=== PATIENT | male | born 1980 | race Caucasian/White ===

== ENCOUNTER → 2016-08-23 | Outpatient (REF) | payer OTHER ==
[2016-08-23 13:36] LABS: VITAMIN B12 LEVEL 491 PG/ML (247-911)
[2016-08-23 13:37] LABS: FOLATE 20.7 NG/ML (>5.4)
[2016-08-23 13:41] LABS: BLOOD UREA NITROGEN 13 MG/DL (7-18); CREATININE FOR GFR 1.18 MG/DL (0.70-1.30); GLOMERULAR FILTRATION RATE > 60.0 (>60)
== END ==
LOC: M LABNEURO 09:41
PROVIDERS: ATTEND Psychiatry & Neurology Neurology
DX: I10 Essential (primary) hypertension (principal); R51 Headache

== ENCOUNTER → 2016-11-17 | Outpatient (CLI) | payer OTHER ==
--- NOTE | 2016-11-17 21:32 | ECHO ---
DATE OF PROCEDURE: 11/17/2016 REFERRING PHYSICIAN: Harry Freeman MD PATIENT LOCATION: Outpatient INDICATION: Palpitations. HEIGHT: 178 cm WEIGHT: 107 kg DIMENSIONS: IVS: 1.2 LV: 4.5 LVPW: 1.2 LA: 4.5 Aorta: 3.1 FINDINGS: The study is of difficult technical quality. Left ventricle is of normal size and overall likely normal LV systolic function even though visualization was limited. Mild left ventricular hypertrophy is noted. Right ventricle appears normal. Left atrium appears moderately enlarged. Right atrium appears normal. No pericardial effusion is noted. Aortic, mitral, tricuspid and pulmonic valves all appear normal. Inferior vena cava was not visualized. Aortic root and aortic arch appear normal. Abdominal aorta was not seen. Doppler interrogation reveals no aortic stenosis or insufficiency. There is no mitral stenosis or insufficiency. Trace tricuspid insufficiency is present. Unfortunately, quality of tricuspid regurgitation (TR) jet was not sufficient to adequately estimate pulmonary artery pressure. Pulmonic valve is functionally competent. Mitral inflow pattern and tissue Doppler imaging of mitral annulus reveal normal diastolic function. CONCLUSIONS: 1. Study is of rather limited technical quality. 2. Normal left ventricle (LV) size with mild left ventricular hypertrophy (LVH) and normal LV systolic and diastolic function. 3. No significant valvular disease. 4. Unable to estimate central venous pressure and pulmonary artery pressure. COMMENTS: Subacute bacterial endocarditis (SBE) prophylaxis is not recommended. Overall study most consistent with mild form of hypertensive heart disease. MTDD
== END ==
LOC: M CARPUL 09:01
PROVIDERS: ATTEND Internal Medicine
DX: I49.9 Cardiac arrhythmia, unspecified (principal)